=== PATIENT | male | born 1975 | race Two or more races ===

== ENCOUNTER 2024-04-23 21:13 | Inpatient (IN) | payer BC, MEDICARE ==
[~2024-04-23] VITALS: Ht 177.8 cm; Wt 125.0 kg
[2024-04-24] VITALS (14 sets, daily range): BP systolic 124–192; BP diastolic 80–105; PULSE 74–105; RESP 17–24; TEMP 97.6–98.2; O2SAT 93–98
[2024-04-24] MEDS ORDERED: CARV25TA55 PO (02:02)
[2024-04-24] MEDS ORDERED: CLON0.2T PO (02:02)
[2024-04-24] MEDS ORDERED: APIX5TAB PO (02:02)
[2024-04-24] MEDS ORDERED: NIFE1TAB30 (02:02)
[2024-04-24] MEDS ORDERED: RANO500G PO (02:02)
[2024-04-24] MEDS ORDERED: EZET10TA22 PO (02:02)
[2024-04-24] MEDS ORDERED: SEVE800T8 PO (02:05)
[2024-04-24] MEDS ORDERED: ACETAMINOPHEN 325 MG TAB PO PRN (03:30)
[2024-04-24] MEDS ORDERED: cloNIDine HCL 0.1 MG TAB PO PRN (03:30)
[2024-04-24] MEDS ORDERED: ONDANSETRON HCL 4 MG/2 ML VIAL IV PRN (03:30)
[2024-04-24] MEDS ORDERED: NITROGLYCERIN 0.4 MG SL TAB SL PRN (03:30)
[2024-04-24] MEDS ORDERED: MORPHINE SULFATE INJ 2 MG/ml SYRG IV PRN (03:30)
[2024-04-24] MEDS ORDERED: hydrALAZINE HCL 20 MG/ML VL IV PRN (07:30)
[2024-04-24] MEDS ORDERED: ASPirin-EC 325mg tab PO ONE (07:30)
[2024-04-24] MEDS: SEVELAMER 800 MG TAB PO SCH (08:00)
[2024-04-24] MEDS: ASPirin 81 mg TAB PO ONE (08:30)
[2024-04-24] MEDS: APIXABAN 5 MG TAB PO SCH (08:47)
[2024-04-24] MEDS: cloNIDine HCL 0.1 MG TAB PO SCH (08:47)
[2024-04-24] MEDS: RANOLAZINE ER 500 MG TAB PO SCH (08:48)
[2024-04-24] MEDS: CARVEDILOL 12.5 MG TAB PO SCH (08:49)
[2024-04-24] MEDS: NIFEdipine ER 30 MG TAB PO SCH (09:08)
[2024-04-24] MEDS: ASPirin 81 mg TAB PO SCH (09:09)
[2024-04-24 09:32] LABS: Basophils # (auto) 0 10 ^3/uL (0-0.2); Basophils % (auto) 0.6 % (0.0-2.0); Eosinophils # (auto) 0.1 10 ^3/uL (0-0.8); Hematocrit 37.9 % (41.0-53.0); Hemoglobin 12.4 g/dL (13.5-17.5); Lymphocytes # (auto) 0.7 10 ^3/uL (0.4-5.4); Lymphocytes % (auto) 11.6 % (10.0-50.0); Mean Corpuscular Hemoglobin 30.1 pg (28.0-32.0); Mean Corpuscular Hgb Conc. 32.6 g/dL (32.0-36.0); Mean Corpuscular Volume 92.1 fL (80.0-100.0); Monocytes # (auto) 0.4 10 ^3/uL (0-1.3); Neutrophils # (auto) 4.9 10 ^3/uL (1.6-8.6); Neutrophils % (auto) 78.8 % (37.0-80.0); Nucleated Red Blood Cells % 0.1 %; Platelet Count (auto) 216 10^3/uL (140-450); Red Blood Cells 4.12 10^6/uL (4.5-5.90); Red Cell Distribution Width 14.8 % (11.8-14.3); White Blood Cell 6.2 10^3/uL (4.4-10.8)
[2024-04-24 09:47] LABS: Alkaline Phosphatase 252 U/L (46-116); Anion Gap 12 (5-15); BUN/Creatinine Ratio 4.5 (10.0-20.0); Blood Urea Nitrogen 54 mg/dL (9-23); Calcium 8.9 mg/dL (8.7-10.4); Carbon Dioxide 16 mmol/L (20-30); Chloride 109 mmol/L (98-107); Glucose 86 mg/dL (74-106); Potassium 5.2 mmol/L (3.5-5.1); Sodium 137 mmol/L (136-145)
[2024-04-24 09:48] LABS: Albumin 4.1 g/dL (3.2-4.8); Bilirubin, Total 0.3 mg/dL (0.2-1.0); Total Protein 6.9 g/dL (5.7-8.2)
[2024-04-24 10:00] LABS: LDL Cholesterol 95 mg/dL (< 100); Triglycerides 104 mg/dL (< 150)
[2024-04-24] MEDS ORDERED: ASPirin 81 mg TAB PO SCH (10:00)
[2024-04-24 10:02] LABS: Cholesterol 144 mg/dL (< 200); HDL Cholesterol 31 mg/dL (40-59)
[2024-04-24 10:27] LABS: Alanine Aminotransferase < 9 U/L (7-40)
[2024-04-24 10:28] LABS: Aspartate Aminotransferase < 8 U/L (13-40)
[2024-04-24 10:42] LABS: INR 1.09 (0.9-1.15); Partial Thromboplastin Time 34.2 SEC (24.5-34.5); Prothrombin Time 11.5 sec (9.3-11.8)
[2024-04-24] MEDS: IODIXANOL 320MG/ML 100ML BTL IV ONE ×2 (13:42→14:19)
[2024-04-24] MEDS: HEPARIN SODIUM (PORCINE) 5000 UNITS/ML 1ML VIAL ONE (14:17)
[2024-04-24] MEDS: VERAPAMIL 2.5MG/ML INJ 2ML VIAL IV ONE (14:18)
[2024-04-24] MEDS: fentaNYL CITRATE 100 MCG/2 ML VL ONE (14:18)
[2024-04-24] MEDS: MIDAZOLAM HCL 2MG/2ML 2ml VIAL (1mg/ml) ONE (14:18)
[2024-04-24] MEDS: LIDOCAINE 2%HCL (LOCAL ANESTH.) INJ 20ML MDV ONE (14:19)
[2024-04-24] MEDS ORDERED: ERGOCALCIFEROL 50,000 UNIT(1.25MG) CAP PO SCH (16:15)
[2024-04-24] MEDS: SODIUM CHL 0.9% 1000 ML BAG XX ONE (17:36)
[2024-04-24] MEDS: SACUBITRIL-VALSARTAN 24mg/26mg TAB PO SCH (22:10)
[2024-04-24] MEDS: ATORVASTATIN 20 MG TAB PO SCH (22:10)
[2024-04-25 01:00] VITALS: BP 157/89; PULSE 83; RESP 18; TEMP 98.7; O2SAT 94
[2024-04-25 05:00] VITALS: BP 154/91; PULSE 83; RESP 16; TEMP 98.8; O2SAT 96
[2024-04-25 06:05] LABS: Basophils # (auto) 0 10 ^3/uL (0-0.2); Basophils % (auto) 0.4 % (0.0-2.0); Eosinophils # (auto) 0.1 10 ^3/uL (0-0.8); Eosinophils % (auto) 2.1 % (0.0-7.0); Hematocrit 36.7 % (41.0-53.0); Hemoglobin 12.7 g/dL (13.5-17.5); Lymphocytes # (auto) 0.6 10 ^3/uL (0.4-5.4); Mean Corpuscular Hgb Conc. 34.8 g/dL (32.0-36.0); Mean Corpuscular Volume 89.2 fL (80.0-100.0); Monocytes # (auto) 0.5 10 ^3/uL (0-1.3); Monocytes % (auto) 7.4 % (0.0-12.0); Neutrophils # (auto) 5.1 10 ^3/uL (1.6-8.6); Neutrophils % (auto) 80.1 % (37.0-80.0); Nucleated Red Blood Cells % 0.1 %; Platelet Count (auto) 217 10^3/uL (140-450); Red Blood Cells 4.11 10^6/uL (4.5-5.90); Red Cell Distribution Width 14.6 % (11.8-14.3); White Blood Cell 6.4 10^3/uL (4.4-10.8)
[2024-04-25 06:15] LABS: Chloride 104 mmol/L (98-107); Potassium 4.3 mmol/L (3.5-5.1); Sodium 136 mmol/L (136-145)
[2024-04-25 06:16] LABS: Anion Gap 9 (5-15); Carbon Dioxide 23 mmol/L (20-30)
[2024-04-25 06:21] LABS: BUN/Creatinine Ratio 4.1 (10.0-20.0); Blood Urea Nitrogen 40 mg/dL (9-23); Glucose 101 mg/dL (74-106)
[2024-04-25 08:00] VITALS: BP 148/85; PULSE 76; PULSE 85; RESP 17; RESP 18; TEMP 98.1; O2SAT 95
[2024-04-25 09:11] LABS: Hepatitis B Surface Antigen Negative (Negative)
[2024-04-25 09:32] LABS: Hepatitis A Ab IgM Negative; Hepatitis B Core IgM Negative; Hepatitis C Antibody Negative (Negative)
[2024-04-25] MEDS: ERGOCALCIFEROL 50,000 UNIT(1.25MG) CAP PO SCH (09:58)
[2024-04-25 12:00] VITALS: BP 134/91; PULSE 92; RESP 18; TEMP 98.1; O2SAT 97
== END 2024-04-25 17:40 | disposition home or self-care (01) | DRG 280 ==
LOC: EAST 04-24 00:20 → UNDOADMIN 04-24 00:20 → TELE-EAST 04-24 03:43 → EAST 04-24 03:43
PROVIDERS: ADMIT Internal Medicine; ATTEND Internal Medicine
PROC: 4A023N7 Measurement of Cardiac Sampling and Pressure, Left Heart, Percutaneous Approach (ICD-10-PCS; principal; 2024-04-24)
PROC: B211YZZ Fluoroscopy of Multiple Coronary Arteries using Other Contrast (ICD-10-PCS; 2024-04-24)
PROC: 5A1D70Z Performance of Urinary Filtration, Intermittent, Less than 6 Hours Per Day (ICD-10-PCS; 2024-04-24)
DX: I21.4 Non-ST elevation (NSTEMI) myocardial infarction (principal); N18.6 End stage renal disease; I42.8 Other cardiomyopathies; E66.2 Morbid (severe) obesity with alveolar hypoventilation; I31.39 Other pericardial effusion (noninflammatory); I50.22 Chronic systolic (congestive) heart failure; I13.2 Hypertensive heart and chronic kidney disease with heart failure and with stage 5 chronic kidney disease, or end stage renal disease; E87.20 Acidosis, unspecified; E78.5 Hyperlipidemia, unspecified; I25.110 Atherosclerotic heart disease of native coronary artery with unstable angina pectoris; E11.22 Type 2 diabetes mellitus with diabetic chronic kidney disease; E87.5 Hyperkalemia; E55.9 Vitamin D deficiency, unspecified; Z68.39 Body mass index [BMI] 39.0-39.9, adult; Z99.2 Dependence on renal dialysis; Z79.01 Long term (current) use of anticoagulants; Z83.3 Family history of diabetes mellitus; Z82.3 Family history of stroke; Z95.0 Presence of cardiac pacemaker; Z79.899 Other long term (current) drug therapy
CPT/HCPCS: 36415; 71045; 80048; 80053; 80061; 80074; 82306; 82607; 83036; 83880; 84100; 84443; 84484; 85025; 85379; 85610; 85730; 87081; 90935; 93306; 93458; 99152; G0378; J2250; Q9967